=== PATIENT | male | born 1960 | race Caucasian/White ===

== ENCOUNTER 2020-11-07 14:19 | Emergency (ER) | payer MEDICARE, MEDICAID ==
[~2020-11-07] VITALS: Ht 177.8 cm; Wt 170.1 kg
[~2020-11-07 14:19] MED LIST: ASPI-543 OR; CLON-853 OR; ETOD500T2 OR; LAMO100T44 OR; LAMO25TA31 OR; PRIM50TA27 OR; VICODIN; [UNRECOGNIZED DRUG - CODE] OR
[2020-11-07 14:22] VITALS: BP 0/0
[2020-11-07] MEDS ORDERED: SODIUM BICARBONATE 8.4 % INJ 50ML VIAL IV ONE ×2 (14:34→15:08)
[2020-11-07] MEDS ORDERED: EPINEPHrine HCL 1 MG/10 ML SYRG ONE ×3 (14:36→15:03)
== END 2020-11-07 16:46 ==
LOC: ER 14:19 → EDBD 14:19 → ER 16:46
DX: I46.9 Cardiac arrest, cause unspecified (principal); R65.21 Severe sepsis with septic shock; Z79.899 Other long term (current) drug therapy; Z79.82 Long term (current) use of aspirin; Z88.0 Allergy status to penicillin
CPT/HCPCS: 31500; 92950; 99291; J0171